=== PATIENT | male | born 1985 | race Caucasian/White ===

== ENCOUNTER 2025-04-11 07:40 | Outpatient (CLI) | payer BC, SELFPAY | END 2025-04-11 07:41 | disposition home or self-care (01) | LOC: FRMREF 07:41 | PROVIDERS: Visit Provider Nurse Practitioner Family | DX: R10.9 Unspecified abdominal pain (principal); Z11.3 Encounter for screening for infections with a predominantly sexual mode of transmission; Z13.6 Encounter for screening for cardiovascular disorders | CPT/HCPCS: 80053; 80061; 86694 ==